=== PATIENT | male | born 1980 | race Asian ===

== ENCOUNTER 2017-05-24 15:55 | Emergency (ER) | payer OTHER ==
[~2017-05-24] VITALS: Ht 177.8 cm; Wt 71.9 kg
[2017-05-24 18:01] LABS: BASOPHIL % 0.7 % (0-2); CALCIUM 9.6 mg/dL (8.5-10.1); CARBON DIOXIDE 32.4 mmol/L (21-32); CHLORIDE SERUM 102 mmol/L (98-107); CREATININE SERUM 1.2 mg/dL (0.7-1.3); GFR1 > 60 mL/min; GLUCOSE SERUM 90 mg/dL (74-106); PLATELET COUNT 251 x10^3mcL (130-400); POTASSIUM SERUM 3.9 mmol/L (3.5-5.1); RED CELL DISTRIBUTION WIDTH 12.6 % (11.5-14.5); SODIUM SERUM 141 mmol/L (136-145)
[2017-05-24 18:05] LABS: ALBUMIN 4.3 g/dL (3.4-5.0); ALKALINE PHOSPHATASE 117 U/L (46-116); ALT/SGPT 109 U/L (16-63); AST/SGOT 83 U/L (15-37); BILIRUBIN TOTAL 0.6 mg/dL (0.20-1.00)
[2017-05-24 18:15] LABS: TOTAL PROTEIN, SERUM 8.7 g/dL (6.4-8.2)
[2017-05-24 18:23] VITALS: BP 118/74
== END 2017-05-24 21:37 | disposition home or self-care (01) ==
LOC: ED 15:55
PROVIDERS: Emergency Medicine
DX: H00.031 Abscess of right upper eyelid (principal); Z88.1 Allergy status to other antibiotic agents; Z88.0 Allergy status to penicillin
CPT/HCPCS: 83880; J0696; J7040; Q9967